=== PATIENT | male | born 1995 | race Caucasian/White ===

== ENCOUNTER 2019-02-25 01:46 | Emergency (ER) | payer OTHER ==
[~2019-02-25] VITALS: Ht 170.2 cm; Wt 72.6 kg
[2019-02-25 01:55] VITALS: BP 139/82
--- NOTE | 2019-02-25 02:27 | NUR ---
Patient discharged to home in stable condition. Written and verbal after care instructions given. Patient verbalizes understanding of instruction.
== END 2019-02-25 02:28 | disposition home or self-care (01) ==
LOC: ER 01:46
DX: L30.9 Dermatitis, unspecified (principal); F10.10 Alcohol abuse, uncomplicated; Y90.9 Presence of alcohol in blood, level not specified; Z90.89 Acquired absence of other organs; Z60.2 Problems related to living alone

== ENCOUNTER 2019-02-27 13:48 | Emergency (ER) | payer OTHER ==
[~2019-02-27] VITALS: Ht 170.2 cm; Wt 72.6 kg
[2019-02-27 13:55] VITALS: BP 143/75
--- NOTE | 2019-02-27 14:50 | NUR ---
Patient discharged to home in stable condition. Written and verbal after care instructions given. Patient verbalizes understanding of instruction.
== END 2019-02-27 15:09 | disposition home or self-care (01) ==
LOC: ER 13:50
DX: B02.9 Zoster without complications (principal); F10.10 Alcohol abuse, uncomplicated; Y90.9 Presence of alcohol in blood, level not specified; Z98.890 Other specified postprocedural states; Z60.2 Problems related to living alone; Z90.89 Acquired absence of other organs

== ENCOUNTER 2021-10-07 08:52 | Emergency (ER) | payer OTHER ==
[~2021-10-07] VITALS: Ht 170.2 cm; Wt 72.6 kg
--- NOTE | 2021-10-07 08:52 | NUR ---
BIBS AFTER NOTICING RECTAL BLEEDING X2 DAYS, DENIES PAIN. PT CONCERNED ABOUT STD. VITALS ARE WITHIN NORMAL LIMITS. BREATHING IS EVEN AND UNLABORED.
--- NOTE | 2021-10-07 09:09 | NUR ---
URINE COLLECTED AND SENT
--- NOTE | 2021-10-07 09:11 | NUR ---
LAB AT BEDSIDE
--- NOTE | 2021-10-07 09:15 | NUR ---
Patient discharged to home in stable condition. Written and verbal after care instructions given. Patient verbalizes understanding of instruction.
[2021-10-07 09:16] VITALS: BP 136/84
== END 2021-10-07 09:16 | disposition home or self-care (01) ==
LOC: ER 08:57
DX: A64 Unspecified sexually transmitted disease (principal)
CPT/HCPCS: 36415; 86592

== ENCOUNTER 2021-10-14 16:49 | Emergency (ER) | payer OTHER ==
[~2021-10-14] VITALS: Ht 172.7 cm; Wt 72.6 kg
[2021-10-14 16:49] VITALS: BP 146/74
[2021-10-14] MEDS ORDERED: PENICILLIN G BENZATHINE 2.4 MMU/4 ML ML IM ONE ×2 (17:59→18:00)
--- NOTE | 2021-10-14 18:06 | NUR ---
Patient discharged to home in stable condition. Written and verbal after care instructions given. Patient verbalizes understanding of instruction.
== END 2021-10-14 18:07 | disposition home or self-care (01) ==
LOC: ER 16:56
DX: A53.9 Syphilis, unspecified (principal); Z90.89 Acquired absence of other organs; Z60.2 Problems related to living alone
CPT/HCPCS: 96372; 99283; J0558

== ENCOUNTER 2021-12-17 17:13 | Emergency (ER) | payer OTHER ==
[~2021-12-17] VITALS: Ht 170.2 cm; Wt 72.6 kg
[2021-12-17 17:40] VITALS: BP 137/74
--- NOTE | 2021-12-17 18:17 | NUR ---
Patient discharged to home in stable condition. Written and verbal after care instructions given. Patient verbalizes understanding of instruction.
== END 2021-12-17 18:19 | disposition home or self-care (01) ==
LOC: ER 17:17
DX: R68.84 Jaw pain (principal); Z90.89 Acquired absence of other organs; Z60.2 Problems related to living alone

== ENCOUNTER 2021-12-27 18:59 | Inpatient (IN) | payer OTHER ==
[~2021-12-27] VITALS: Ht 170.2 cm; Wt 76.7 kg
[2021-12-27] MEDS ORDERED: ACETAMINOPHEN ES 500 MG TABLET ONE (20:21)
--- NOTE | 2021-12-27 20:28 | NUR ---
BLOOD COLLECTED AND SENT TO LAB
[2021-12-27] MEDS ORDERED: IV NS 0.9% 500 ML IV ONE (20:30)
[2021-12-27] MEDS ORDERED: ACETAMINOPHEN ES 500 MG TABLET PO ONE (20:30)
[2021-12-27] MEDS ORDERED: IOHEXOL-300 100 ML VIAL IV ONE (20:43)
[2021-12-27] MEDS ORDERED: IV NS 0.9% 250 ML IV ONE (20:43)
[2021-12-27] MEDS ORDERED: CT SWABBABLE VALVE TRANS SET 1 EA INFUS.SET MC ONE (20:43)
--- NOTE | 2021-12-27 21:04 | NUR ---
Lynda ramirez in ED - 12/27/21 at 2111 by [facility] AT BEDSIDE
[2021-12-27 21:09] LABS: BASOPHILS % (AUTO) 0.2 % (0.0-2.0); HEMATOCRIT 37 % (39-51); HEMOGLOBIN 12.1 g/dL (13.5-17.5); LYMPHOCYTES # (AUTO) 2.2 K/uL (0.8-4.8); LYMPHOCYTES % (AUTO) 22.2 % (20.0-44.0); MEAN CORPUSCULAR HGB CONC 33 g/dl (31.0-36.0); MEAN CORPUSCULAR VOLUME 88 fL (80-96); MONOCYTES # (AUTO) 0.7 K/uL (0.1-1.30); NEUTROPHILS % (AUTO) 69.6 % (43.0-81.0); PLATELET COUNT (AUTO) 314 K/uL (150-450); RED BLOOD CELL COUNT(AUTO) 4.17 MIL/uL (4.5-6.0)
[2021-12-27 21:11] LABS: CALCIUM, SERUM 8.9 mg/dL (8.5-10.1); POTASSIUM 3.7 mmol/L (3.5-5.1)
[2021-12-28] VITALS: BP_SYST 112; BP_SYST 145; BP_DIAS 64; BP_DIAS 69
[2021-12-28] MEDS ORDERED: Z GUARD REMEDY 4 OZ OINT TP PRN
[2021-12-28] MEDS ORDERED: ACETAMINOPHEN 325 MG TABLET PO PRN
[2021-12-28] MEDS ORDERED: HYDROCODONE/APAP 5/325MG TABLET PO PRN
[2021-12-28] MEDS ORDERED: MAGNESIUM HYDROXIDE 30 ML UDC PO PRN
[2021-12-28] MEDS ORDERED: ONDANSETRON HCL/PF 4 MG/2 ML VIAL IVP PRN
--- NOTE | 2021-12-28 00:14 | NUR ---
328-1 PER RN LOAN SERVICING REPRESENTATIVE
--- NOTE | 2021-12-28 00:57 | NUR ---
REPORT GIVEN TO DIAMOND JOYCE
--- NOTE | 2021-12-28 01:15 | NUR ---
PT TRANSFERRED TO [facility] 328-1 VIA GURNEY IN STABLE CONDITION.
--- NOTE | 2021-12-28 01:30 | NUR ---
MS/TELE/RN RECEIVED PATIENT FROM [facility]IA [facility] ADMITTED FOR R/O NEUROSYPHILIS. PATIENT IS AWAKE, ALERT, ORIENTED, COMFORTABLE, NO C/O BEDOLLA, VISION IS BETTER, HEARING IS BETTER, NO DISTRESS NOTE, ADMISSION DONE PER PROTOCOL, REFUSED SKIN ASSESSMENT AT THIS TIME, PLAN OF CARE DISCUSSED, VERBALISED UNDERSTANDING AND AGREEMENT, FALL PRECAUTIONS PER PROTOCOL WAS INSTITUTED, TAUGHT THE USE OF CALL LIGHT AND PLACED IT AT BEDSIDE WITHIN REACH. MD ORDERS CARRIED OUT. WILL MONITOR.
[2021-12-28] MEDS ORDERED: CEFTRIAXONE 1 G VIAL ONE ×2 (01:31→01:32)
[2021-12-28] MEDS: CEFTRIAXONE 2 G in IV D5W 100 ML IV SCH (01:42)
[2021-12-28 02:00] VITALS: BP 145/69
[2021-12-28 06:43] LABS: BASOPHILS % (AUTO) 0.6 % (0.0-2.0); EOSINOPHILS % (AUTO) 3.8 % (0.0-6.0); HEMATOCRIT 34 % (39-51); HEMOGLOBIN 11.1 g/dL (13.5-17.5); LYMPHOCYTES # (AUTO) 2.7 K/uL (0.8-4.8); LYMPHOCYTES % (AUTO) 34.1 % (20.0-44.0); MEAN CORPUSCULAR HGB CONC 33 g/dl (31.0-36.0); MEAN CORPUSCULAR VOLUME 89 fL (80-96); MONOCYTES # (AUTO) 0.7 K/uL (0.1-1.30); MONOCYTES % (AUTO) 8.2 % (2.0-12.0); NEUTROPHILS # (AUTO) 4.3 K/uL (1.8-8.9); NEUTROPHILS % (AUTO) 53.3 % (43.0-81.0); PLATELET COUNT (AUTO) 276 K/uL (150-450); RED BLOOD CELL COUNT(AUTO) 3.79 MIL/uL (4.5-6.0)
--- NOTE | 2021-12-28 06:49 | NUR ---
MS/TELE/RN PATIENT IS AWAKE AT THIS TIME, COMFORTABLE, NO DISTRESS NOTED CALL LIGHT IN REACH, ALL NEEDS ATTENDED AT THIS TIME WILL CONTINUE TO MONITOR.
[2021-12-28 07:05] LABS: CALCIUM, SERUM 8.2 mg/dL (8.5-10.1); CREATININE 0.9 mg/dL (0.6-1.3); MAGNESIUM 2.6 mg/dL (1.8-2.4); PHOSPHORUS 5.2 mg/dL (2.5-4.9); POTASSIUM 3.8 mmol/L (3.5-5.1)
[2021-12-28] MEDS: PANTOPRAZOLE 40 MG TABLET.DR PO SCH (07:45)
[2021-12-28] MEDS ORDERED: EMTR1TAB18 PO (07:52)
[2021-12-28 08:21] VITALS: BP 121/57
--- NOTE | 2021-12-28 12:10 | NUR ---
RN NOTES CALLED RADIOLOGY FOR LUMBAR PUNCTURE SCHEDULE; WILL CALL BACK TO CONFIRM.
--- NOTE | 2021-12-28 13:05 | NUR ---
RN NOTES DR. KATZ AT BEDSIDE TO SEE THE PATIENT. FOR ID CONSULT PER DR. KATZ.
--- NOTE | 2021-12-28 14:10 | NUR ---
RN NOTES SPOKE W/ RADIOLOGY AND WAS INFORMED THAT MD RN ER STATED THAT LP WILL BE DONE IF PROCEDURE IS EMERGENT AND WARRANTED; WILL STAND BY FOR NOW AND AWAIT ID RECOMMENDATIONS ONCE PATIENT IS SEEN BY ID SPECIALIST. DR. KATZ AND CHARGE NURSE AWARE.
--- NOTE | 2021-12-28 16:36 | NUR ---
RN NOTES SPOKE W/ ENEIDA BRUNNER, SURVEY CAD TECHNICIAN ID, FOR ID CONSULT. PER ENEIDA, SHE WILL BE SEEING PATIENT TONIGHT AROUND [phone] AND TO CONTINUE W/ LUMBAR PUNCTURE PROCEDURE IF NOT TONIGHT THEN TOMORROW PER DR. DAVILA.
[2021-12-28 16:47] VITALS: BP 125/58
--- NOTE | 2021-12-28 16:53 | NUR ---
RN NOTES SPOKE W/ RADIOLOGY; PER RADIOLOGY, LUMBAR PUNCTURE WILL NOT BE DONE TONIGHT NOR TOMORROW EVEN IF ORDER IS STAT. THE EARLIEST THAT LP WILL BE DONE IS ON THURSDAY.
--- NOTE | 2021-12-28 18:48 | NUR ---
RN NOTES FAMILY AT BEDSIDE TO VISIT PATIENT.
--- NOTE | 2021-12-28 19:35 | NUR ---
MS RN OPENING NOTES RECEIVED PATIENT LAYING AWAKE IN BED. A/O X4. PATIENT WITH REGULAR AND UNLABORED BREATHING ON ROOM AIR, TOLERATED WELL. NO SIGNS AND SYMPTOMS OF DISTRESS NOTED AT THIS TIME. NO COMPLAINS OF PAIN OR DISCOMFORT AT THIS TIME. IV ACCESS RAC G #18 SL. IV ACCESS PATENT AND INTACT. SAFETY PRECAUTIONS ENFORCED WITH BED LOCKED AND AT LOWEST POSITION. SIDE RAILS UP X2. CALL LIGHT WITHIN REACH AT ALL TIMES. WILL CONTINUE TO MONITOR PATIENT.
[2021-12-28 20:00] VITALS: BP 129/75
[2021-12-29] MEDS: CEFTRIAXONE 2 G in IV D5W 100 ML IV SCH (00:04)
--- NOTE | 2021-12-29 06:41 | NUR ---
MS RN CLOSING NOTES PATIENT STILL LAYING AWAKE IN BED. A/O X4. PATIENT WITH REGULAR AND UNLABORED BREATHING ON ROOM AIR, TOLERATED WELL. NO SIGNS AND SYMPTOMS OF DISTRESS NOTED AT THIS TIME. NO COMPLAINS OF PAIN OR DISCOMFORT AT THIS TIME. IV ACCESS RAC G #18 SL. IV ACCESS PATENT AND INTACT. SAFETY PRECAUTIONS ENFORCED WITH BED LOCKED AND AT LOWEST POSITION. SIDE RAILS UP X2. CALL LIGHT WITHIN REACH AT ALL TIMES. WILL ENDORSE CONTINUITY OF CARE TO DAY SHIFT NURSE.
--- NOTE | 2021-12-29 07:26 | NUR ---
MS RN OPENING NOTES RECEIVED PATIENT AWAKE IN BED IN NO ACUTE SIGNS OF DISTRESS. A/O X4, DENIES PAIN OR ANY DISCOMFORTS AT THIS TIME. ON ROOM AIR, TOLERATING WELL, BREATHING EVEN AND UNLABORED. IV ACCESS ON RAC G#18 INTACT AND PATENT. SAFETY PRECAUTIONS IN PLACED: BED LOCKED AND AT LOWEST POSITION, SIDE-RAILS UP X2. CALL LIGHT WITHIN REACH. WILL CONTINUE TO MONITOR PATIENT.
[2021-12-29] MEDS: PANTOPRAZOLE 40 MG TABLET.DR PO SCH (07:30)
[2021-12-29 08:23] VITALS: BP 133/77
--- NOTE | 2021-12-29 13:03 | NUR ---
RN NOTES PATIENT SEEN BY DR. KATZ TODAY; OKAY FOR DISCHARGE AND INSTRUCTED TO RETURN TO THE ER IF SYMPTOMS PERSIST. PER DR. KATZ, WILL INFORM ID AND ASK FOR OUTPATIENT ATB RECOMMENDATIONS.
--- NOTE | 2021-12-29 14:41 | NUR ---
RN NOTES FACUNDO KATZ WITH ORDER TO INSERT MIDLINE FOR PT. COMPRESSOR OPERATOR ADJUSTER NOTIFIED.
--- NOTE | 2021-12-29 14:42 | NUR ---
RN NOTES URINE SPECIMEN COLLECTED AND CALLED LAB TO PICK-UP SPECIMEN.
[2021-12-29 16:00] VITALS: BP 139/76
--- NOTE | 2021-12-29 18:40 | NUR ---
MS RN CLOSING NOTES PATIENT AWAKE AND RESTING IN BED AT THIS TIME. A/O X4, ABLE TO MAKE NEEDS KNOWN,. AMBULATORY WITH STEADY GAIT. ON ROOM AIR, TOLERATING WELL, BREATHING EVEN AND UNLABORED. IV ACCESS ON RAC G#18 INTACT, PATENT AND FLUSHES WLL. ALL NEEDS AND CARE ATTENDED WELL. SAFETY PRECAUTIONS KEPT IN PLACED: BED LOCKED AND AT LOWEST POSITION, SIDE-RAILS UP X2. CALL LIGHT AND TRAY TABLE WITHIN EASY REACH OF PT. WILL ENDORSE RHONDA TO TICKET SCHEDULER NURSE.
--- NOTE | 2021-12-29 19:45 | NUR ---
RN OPENING NOTES RECEIVED PT IN BED, AWAKE, VISITOR AT BEDSIDE. AOx4, ABLE TO MAKE NEEDS KNOWN. ON RA AND TOLERATING WELL. NO SOB NOTED. NO S/SX OF RESPIRATORY DISTRESS NOTED. IV ACCESS IN RAC #18G. IV IS INTACT, PATENT, AND FLUSHING WELL. SAFETY PRECAUTIONS IN PLACE: BED IN LOWEST, LOCKED POSITION, SIDERAILS UPx2, AND BRAKES ON. TABLE AND CALL LIGHT WITHIN REACH. WILL CONTINUE TO MONITOR.
[2021-12-29 20:15] VITALS: BP 127/78
[2021-12-30] MEDS: CEFTRIAXONE 2 G in IV D5W 100 ML IV SCH (01:10)
--- NOTE | 2021-12-30 06:49 | NUR ---
PT STATED OUTSIDE LAB VALUES FROM PRIMARY PHYSICIAN RETURNED WITH POSITIVE VALUES FOR HEPATITIS A AND SYPHILIS.
--- NOTE | 2021-12-30 06:57 | NUR ---
RN CLOSING NOTES PT IN BED, ASLEEP, AWAKENS TO VERBAL STIMULI. AOx4, ABLE TO MAKE NEEDS KNOWN. ON RA AND TOLERATING WELL. NO SOB NOTED. NO S/SX OF RESPIRATORY DISTRESS NOTED. IV ACCESS IN RAC #18G. IV IS INTACT, PATENT, AND FLUSHING WELL. ALL NEEDS MET. PT KEPT CLEAN AND DRY. SAFETY PRECAUTIONS IN PLACE: BED IN LOWEST, LOCKED POSITION, SIDERAILS UPx2, AND BRAKES ON. TABLE AND CALL LIGHT WITHIN REACH. WILL ENDORSE TO ONCOMING SHIFT FOR RHONDA.
--- NOTE | 2021-12-30 07:20 | NUR ---
MS RN OPENING NOTES RECEIVED PATIENT IN BED IN AWAKE, A/O X4, ABLE TO MAKE NEEDS KNOWN, DENIES PAIN OR ANY DISCOMFORTS AT THIS TIME. ON ROOM AIR, TOLERATING WELL, BREATHING EVEN AND UNLABORED. IV ACCESS ON RAC G#18 AND MIDLINE ON FLORESITA G#18 BOTH INTACT AND PATENT. SAFETY MEASURES IN PLACED: BED LOCKED AND AT LOWEST POSITION, SIDE-RAILS UP X2. CALL LIGHT WITHIN REACH. WILL CONTINUE TO MONITOR PATIENT.
[2021-12-30] MEDS: PANTOPRAZOLE 40 MG TABLET.DR PO SCH (07:30)
[2021-12-30 08:00] VITALS: BP 118/59
[2021-12-30] MEDS ORDERED: CEFT1FRO2 IV (11:48)
--- NOTE | 2021-12-30 14:15 | NUR ---
RN NOTES PT S/P XR LUMBAR PUNCTURE. 3 BOTTLES OF CSF SPECIMENS SENT TO LAB.
[2021-12-30 15:33] LABS: CSF GLUCOSE 56 mg/dL (40-70); CSF PROTEIN 42.8 mg/dL (15-45)
[2021-12-30 16:00] VITALS: BP 136/72
[2021-12-30] MEDS ORDERED: CEFT2FRO2 IV (17:36)
--- NOTE | 2021-12-30 18:37 | NUR ---
MS RN CLOSING NOTES PATIENT IN BED WATCHING TV AT THIS TIME. A/O X4, ABLE TO MAKE NEEDS KNOWN. AMBULATORY WITH STEADY GAIT. PT FOR DISCHARGE HOME TONIGHT PER MD ORDER. ON ROOM AIR, TOLERATING WELL, BREATHING EVEN AND UNLABORED. MIDLINE ON FLORESITA G#18 INTACT, PATENT AND FLUSHES WELL. ALL NEEDS AND CARE ATTENDED WELL. SAFETY PRECAUTIONS KEPT IN PLACED: BED LOCKED AND AT LOWEST POSITION, SIDE-RAILS UP X2. CALL LIGHT AND TRAY TABLE WITHIN EASY REACH OF PT. WILL ENDORSE RHONDA AND POC TO PLASTIC PRESS MOLDER NURSE.
--- NOTE | 2021-12-30 19:44 | NUR ---
RN OPENING NOTES RECEIVED PT IN BED, AWAKE. AOx4, ABLE TO MAKE NEEDS KNOWN. ON RA AND TOLERATING WELL. NO SOB NOTED. NO S/SX OF RESPIRATORY DISTRESS NOTED. IV ACCESS IN RAC #18G AND FLORESITA MIDLINE #18. IV IS INTACT, PATENT, AND FLUSHING WELL. SAFETY PRECAUTIONS IN PLACE: BED IN LOWEST, LOCKED POSITION, SIDERAILS UPx2, AND BRAKES ON. TABLE AND CALL LIGHT WITHIN REACH. WILL CONTINUE TO MONITOR.
[2021-12-30 20:00] VITALS: BP 130/78
[2021-12-30] MEDS ORDERED: CEFTRIAXONE 2 G in IV D5W 100 ML IV SCH (22:00)
--- NOTE | 2021-12-30 23:02 | NUR ---
DISCHARGE NOTES PT LEFT IN PRIVATE VEHICLE @1654. AMBULATED DOWNSTAIRS ON OWN WITH STEADY GAIT. ALL BELONGINGS ACCOUNTED FOR. DISCHARGE AND BELONGINGS PAPERWORK SIGNED. DISCHARGE EDUCATION GIVEN. MIDLINE INTACT FOR HOME HEALTH. IV IS INTACT, PATENT, AND FLUSHING WELL. NO SIGNS OF REDNESS. VITAL SIGNS STABLE.
[2022-01-02 11:07] LABS: *HIV-1 RNA BY PCR <20 copies/mL (.)
[2022-01-08] MEDS ORDERED: ZOLP5TAB2 PO (09:23)
[2022-01-08] MEDS ORDERED: HYDR-3972 PO (09:23)
== END 2021-12-30 22:55 | disposition home health service (06) | DRG 42 ==
LOC: ER 19:01 → MED 12-28 00:33
PROVIDERS: ADMIT Nurse Practitioner Family; ATTEND Nurse Practitioner Acute Care
PROC: 009U3ZX Drainage of Spinal Canal, Percutaneous Approach, Diagnostic (ICD-10-PCS; principal; 2021-12-30)
PROC: B01B1ZZ Fluoroscopy of Spinal Cord using Low Osmolar Contrast (ICD-10-PCS; principal; 2021-12-30)
DX: A52.3 Neurosyphilis, unspecified (principal); D64.9 Anemia, unspecified; R73.9 Hyperglycemia, unspecified; Z20.822 Contact with and (suspected) exposure to COVID-19; Z86.19 Personal history of other infectious and parasitic diseases
CPT/HCPCS: 36410; 36415; 62270; 70470-TC; 80048-TC; 83540-TC; 83735-TC; 84100-TC; 85025-TC; 85730-TC; 86140-TC; 86592; 86706; 86780; 86803; 87040-TC; 87081-TC; 87086-TC; 87536; 87806; 88108-TC; 88305-TC; 89051-TC; C9803; G0378; J0696; J7040; J7050; J7060; Q9967

== ENCOUNTER 2022-01-05 07:20 | Emergency (ER) | payer OTHER ==
[~2022-01-05] VITALS: Ht 170.2 cm; Wt 72.6 kg
[~2022-01-05 07:20] MED LIST: CEFT2FRO2 IV; EMTR1TAB18 PO
--- NOTE | 2022-01-05 07:39 | NUR ---
BIBS C/O MIDLINE PAIN. PATIENT ALERT AND ORIENTED X3. AMBULATORY WITH NON LABORED BREATHING. IN BED 19 AWAITING MD GARCIA
--- NOTE | 2022-01-05 09:30 | NUR ---
RAPID STREP SWAB DONE AND SENT TO LAB
[2022-01-05 09:39] LABS: BASOPHILS % (AUTO) 0.4 % (0.0-2.0); EOSINOPHILS % (AUTO) 1.8 % (0.0-6.0); HEMATOCRIT 35 % (39-51); HEMOGLOBIN 11.4 g/dL (13.5-17.5); LYMPHOCYTES # (AUTO) 2.6 K/uL (0.8-4.8); LYMPHOCYTES % (AUTO) 29.4 % (20.0-44.0); MEAN CORPUSCULAR HGB CONC 33 g/dl (31.0-36.0); MEAN CORPUSCULAR VOLUME 87 fL (80-96); MONOCYTES # (AUTO) 0.9 K/uL (0.1-1.30); MONOCYTES % (AUTO) 10.1 % (2.0-12.0); NEUTROPHILS # (AUTO) 5.1 K/uL (1.8-8.9); NEUTROPHILS % (AUTO) 58.3 % (43.0-81.0); PLATELET COUNT (AUTO) 303 K/uL (150-450); RED BLOOD CELL COUNT(AUTO) 3.97 MIL/uL (4.5-6.0); WHITE BLOOD COUNT (AUTO) 8.7 K/uL (4.3-11.0)
[2022-01-05 10:54] VITALS: BP 132/72
--- NOTE | 2022-01-05 10:54 | NUR ---
Patient discharged to home in stable condition. Written and verbal after care instructions given. Patient verbalizes understanding of instruction.
[2022-01-08] MEDS ORDERED: ZOLP5TAB2 PO (09:23)
[2022-01-08] MEDS ORDERED: HYDR-3972 PO (09:23)
== END 2022-01-05 10:55 | disposition home or self-care (01) ==
LOC: ER 07:27
DX: T82.848A Pain due to vascular prosthetic devices, implants and grafts, initial encounter (principal); Z90.89 Acquired absence of other organs; Z60.2 Problems related to living alone
CPT/HCPCS: 36415; 85025-TC; 86403-TC; 87070-TC; 93971-TC

== ENCOUNTER 2022-01-07 00:12 | Inpatient (IN) | payer OTHER ==
[~2022-01-07] VITALS: Ht 170.2 cm; Wt 72.6 kg
--- NOTE | 2022-01-07 01:05 | NUR ---
BIBS C/O NAUSEA AND RINGING IN EARS "ONLY SUBSIDES WHEN LYING DOWN" TYLENOL TAKEN CERTIFIED MEDICAL RECORDS CODER. PATIENT ALERT AND ORIENTED X3. AMBULATORY WITH NON LABORED BREATHING. IN BED 01 AWAITING MD GARCIA.
--- NOTE | 2022-01-07 01:06 | NUR ---
FLORESITA #18G PICCLINE S/L; PATENT AND INTACT.
[2022-01-07] MEDS ORDERED: ONDANSETRON 4 MG TAB.RAPDIS ONE (01:28)
[2022-01-07] MEDS ORDERED: MECLIZINE HCL 25 MG TABLET ONE (01:28)
[2022-01-07] MEDS ORDERED: ONDANSETRON 4 MG TAB.RAPDIS SL ONE (01:30)
[2022-01-07] MEDS ORDERED: MECLIZINE HCL 25 MG TABLET PO ONE (01:30)
[2022-01-07] MEDS ORDERED: ONDA4TAB5 PO (01:31)
[2022-01-07] MEDS ORDERED: HYDR-4209 PO (01:31)
[2022-01-07] MEDS ORDERED: HYDROCODONE/APAP 10/325MG TABLET ONE (03:51)
[2022-01-07] MEDS ORDERED: ONDANSETRON HCL/PF 4 MG/2 ML VIAL ONE (03:51)
--- NOTE | 2022-01-07 03:54 | NUR ---
CLINICAL PHARMACOLOGIST AT PT'S BEDSIDE
[2022-01-07] MEDS ORDERED: ONDANSETRON HCL/PF 4 MG/2 ML VIAL IVP ONE (04:00)
[2022-01-07] MEDS ORDERED: HYDROCODONE/APAP 10/325MG TABLET PO ONE (04:00)
--- NOTE | 2022-01-07 04:00 | NUR ---
COVID ANTIGEN SWAB COLLECTED AND SENT TO LAB
[2022-01-07 04:12] LABS: BASOPHILS % (AUTO) 0.5 % (0.0-2.0); EOSINOPHILS % (AUTO) 2.3 % (0.0-6.0); HEMATOCRIT 36 % (39-51); HEMOGLOBIN 11.9 g/dL (13.5-17.5); LYMPHOCYTES # (AUTO) 2.7 K/uL (0.8-4.8); LYMPHOCYTES % (AUTO) 32.3 % (20.0-44.0); MEAN CORPUSCULAR HGB CONC 33 g/dl (31.0-36.0); MEAN CORPUSCULAR VOLUME 87 fL (80-96); MONOCYTES # (AUTO) 0.7 K/uL (0.1-1.30); MONOCYTES % (AUTO) 8.3 % (2.0-12.0); NEUTROPHILS # (AUTO) 4.8 K/uL (1.8-8.9); NEUTROPHILS % (AUTO) 56.6 % (43.0-81.0); PLATELET COUNT (AUTO) 309 K/uL (150-450); RED BLOOD CELL COUNT(AUTO) 4.16 MIL/uL (4.5-6.0); WHITE BLOOD COUNT (AUTO) 8.4 K/uL (4.3-11.0)
[2022-01-07 04:30] LABS: CALCIUM, SERUM 8.8 mg/dL (8.5-10.1); CREATININE 0.9 mg/dL (0.6-1.3)
[2022-01-07 04:37] LABS: ALBUMIN 3.5 g/dL (3.4-5.0); BILIRUBIN,TOTAL 0.2 mg/dL (0.2-1.0); TOTAL PROTEIN, SERUM 9.2 g/dL (6.4-8.2)
--- NOTE | 2022-01-07 06:07 | NUR ---
Maxime ROSSI. ON THE PHONE WITH DR TANG
[2022-01-07] MEDS ORDERED: MORPHINE SULFATE INJ 2 MG/ML DISP.SYRIN IV PRN (06:30)
[2022-01-07] MEDS ORDERED: HYDROCODONE/APAP 5/325MG TABLET PO PRN (06:30)
[2022-01-07] MEDS ORDERED: ONDANSETRON HCL/PF 4 MG/2 ML VIAL IVP PRN (06:30)
[2022-01-07] MEDS ORDERED: ACETAMINOPHEN 325 MG TABLET PO PRN (06:30)
[2022-01-07] MEDS: ENOXAPARIN SODIUM 40 MG/0.4 ML DISP.SYRIN SQ SCH (08:00)
[2022-01-07] MEDS ORDERED: DEXTROSE ISO IV SCH (09:00)
[2022-01-07] MEDS ORDERED: [UNRECOGNIZED DRUG - OTHER] IV SCH (09:00)
[2022-01-07] MEDS ORDERED: CEFTRIAXONE NA IV SCH (09:00)
[2022-01-07] MEDS ORDERED: ENOXAPARIN SODIUM 40 MG/0.4 ML DISP.SYRIN SQ ONE (09:18)
--- NOTE | 2022-01-07 09:32 | NUR ---
ROOM 314-2
[2022-01-07] MEDS ORDERED: CEFTRIAXONE 2 G in IV D5W 100 ML IV ONE (10:00)
--- NOTE | 2022-01-07 10:11 | NUR ---
THE PATIENT IS TRANSFERED TO ROOM 314-2 IN STABLE CONDITION AND PER POLICY.
--- NOTE | 2022-01-07 10:38 | NUR ---
RN NOTES RESTING IN BED, JUST FINISHED EATING BREAKFAST. NO COMPLAINT OF NAUSEA/VOMITING AT THIS TIME. IV ATB CURRENTLY INFUSING. MIDLINE ON FLORESITA INTACT AND PATENT. WILL CONTINUE TO MONITOR.
--- NOTE | 2022-01-07 17:35 | NUR ---
RN NOTES PATIENT SEEN BY DR. CARDOZA FOR NEUROLOGY CONSULT.
--- NOTE | 2022-01-07 19:26 | NUR ---
RN NOTES BEDSIDE ENDORSEMENT GIVEN TO SALMON TROLL FISHER RN FOR RHONDA.
--- NOTE | 2022-01-07 20:00 | NUR ---
MS RN NOTES PT REFUSING VITAL SIGNS CHECK X3 RISK AND BENEFITS EXPLAINED X3 WILL TRY AGAIN LATER.
--- NOTE | 2022-01-07 20:01 | NUR ---
RN OPENING NOTES PT IN BED A/OX 4 NO PAIN OR RESPIRATORY DISTRESS NOTED AT THIS TIME. ON ROOM AIR TOLERATING WELL. PT NOTED WITH FLORESITA MIDLINE. CALL LIGHT WITHIN REACH. TABLE WITHIN REACH WILL CONTINUE TO MONITOR.
--- NOTE | 2022-01-07 21:19 | NUR ---
RN NOTES SPOKE TO DR HENNING RECEIVED NEW ORDER FOR NORTRIPTYLINE 20 MG QHS ORDER NOTED AND ARRIVED OUT. WILL CONTINUE TO MONITOR.
[2022-01-07] MEDS ORDERED: NORTRIPTYLINE HCL 10 MG CAPSULE PO SCH (22:00)
[2022-01-08] MEDS: ENOXAPARIN SODIUM 40 MG/0.4 ML DISP.SYRIN SQ SCH (06:18)
--- NOTE | 2022-01-08 06:35 | NUR ---
RN CLOSING NOTES PT IN BED A/OX 4 NO PAIN OR RESPIRATORY DISTRESS NOTED AT THIS TIME. ON ROOM AIR TOLERATING WELL. PT NOTED WITH FLORESITA MIDLINE. CALL LIGHT WITHIN REACH. TABLE WITHIN REACH ALL NEEDS ANTICIPATED AND MET. WILL ENDORSE CARE TO DAYS HIFT NURSE.
[2022-01-08 07:28] LABS: BASOPHILS % (AUTO) 0.5 % (0.0-2.0); EOSINOPHILS % (AUTO) 3.2 % (0.0-6.0); HEMATOCRIT 35 % (39-51); HEMOGLOBIN 11.6 g/dL (13.5-17.5); LYMPHOCYTES # (AUTO) 2.7 K/uL (0.8-4.8); LYMPHOCYTES % (AUTO) 32.3 % (20.0-44.0); MEAN CORPUSCULAR HGB CONC 33 g/dl (31.0-36.0); MEAN CORPUSCULAR VOLUME 87 fL (80-96); MONOCYTES # (AUTO) 0.6 K/uL (0.1-1.30); MONOCYTES % (AUTO) 7.4 % (2.0-12.0); NEUTROPHILS # (AUTO) 4.8 K/uL (1.8-8.9); NEUTROPHILS % (AUTO) 56.6 % (43.0-81.0); PLATELET COUNT (AUTO) 289 K/uL (150-450); RED BLOOD CELL COUNT(AUTO) 4.06 MIL/uL (4.5-6.0); WHITE BLOOD COUNT (AUTO) 8.5 K/uL (4.3-11.0)
[2022-01-08 07:58] LABS: ALBUMIN 3.2 g/dL (3.4-5.0); BILIRUBIN,TOTAL 0.1 mg/dL (0.2-1.0); CALCIUM, SERUM 8.1 mg/dL (8.5-10.1); MAGNESIUM 2.2 mg/dL (1.8-2.4); PHOSPHORUS 3.4 mg/dL (2.5-4.9); POTASSIUM 3.5 mmol/L (3.5-5.1)
[2022-01-08 08:00] VITALS: BP 111/66
--- NOTE | 2022-01-08 08:00 | NUR ---
received pt. alert and oriented x4.no complaints offered.denies headache.
[2022-01-08 08:17] LABS: TOTAL PROTEIN, SERUM 8.4 g/dL (6.4-8.2)
[2022-01-08] MEDS ORDERED: ZOLP5TAB2 PO (09:23)
[2022-01-08] MEDS ORDERED: HYDR-3972 PO (09:23)
--- NOTE | 2022-01-08 09:30 | NUR ---
breezy mud cleaner operator here dc order given.rxs sent to pt's pharm.
--- NOTE | 2022-01-08 11:30 | NUR ---
hep lock out.belonging sheet signed along with other papers.verbalized understanding of all instructions.taken via w/c to lobby accompanied by transfer car operator drier.
== END 2022-01-08 11:15 | disposition home or self-care (01) | DRG 54 ==
LOC: ER 00:14 → TRANSITION 08:24 → TELE 09:28 → MED 23:27
PROVIDERS: ADMIT Nurse Practitioner Acute Care; ATTEND Nurse Practitioner Acute Care
DX: G97.1 Other reaction to spinal and lumbar puncture (principal); A52.3 Neurosyphilis, unspecified; D63.8 Anemia in other chronic diseases classified elsewhere; Z86.19 Personal history of other infectious and parasitic diseases; Y84.4 Aspiration of fluid as the cause of abnormal reaction of the patient, or of later complication, without mention of misadventure at the time of the procedure; Y92.009 Unspecified place in unspecified non-institutional (private) residence as the place of occurrence of the external cause; Z20.822 Contact with and (suspected) exposure to COVID-19; Z87.19 Personal history of other diseases of the digestive system
CPT/HCPCS: 36415; 80048-TC; 80053-TC; 80076-TC; 83735-TC; 84100-TC; 85025-TC; 85652-TC; 85730-TC; C9803; G0378; J0696; J1650; J2405; J7050; J7060; J8597; Q0162

== ENCOUNTER 2022-05-18 20:18 | Emergency (ER) | payer OTHER ==
[~2022-05-18] VITALS: Ht 170.2 cm; Wt 68.0 kg
[~2022-05-18 20:18] MED LIST changes: -CEFT2FRO2 IV; +HYDR-3972 PO; +HYDR-4209 PO; +ONDA4TAB5 PO; +ZOLP5TAB2 PO
--- NOTE | 2022-05-18 20:35 | NUR ---
BIBS. TO ER BED 10. AAOX4. NOT IN RESP DISTRESS. VITALS STABLE. CAME INFOR RECTAL BLEEDING THAT HAS BEEN GOING ON FOR THE PAST 6-8 WEEKS. REPORTS BLEEDING INTERMITENTLY BUT FOR THAT PAST 3 DAYS. IT HAS BEEN WORST. DENIES PAIN. AWAITING MD FOR EVAL.
[2022-05-18 21:21] LABS: BASOPHILS % (AUTO) 0.5 % (0.0-2.0); EOSINOPHILS % (AUTO) 1.8 % (0.0-6.0); HEMATOCRIT 38 % (39-51); HEMOGLOBIN 12.6 g/dL (13.5-17.5); LYMPHOCYTES # (AUTO) 2.9 K/uL (0.8-4.8); LYMPHOCYTES % (AUTO) 33.5 % (20.0-44.0); MEAN CORPUSCULAR HGB CONC 33 g/dl (31.0-36.0); MEAN CORPUSCULAR VOLUME 87 fL (80-96); MONOCYTES # (AUTO) 0.7 K/uL (0.1-1.30); MONOCYTES % (AUTO) 8.4 % (2.0-12.0); NEUTROPHILS # (AUTO) 4.8 K/uL (1.8-8.9); NEUTROPHILS % (AUTO) 55.8 % (43.0-81.0); PLATELET COUNT (AUTO) 284 K/uL (150-450); RED BLOOD CELL COUNT(AUTO) 4.36 MIL/uL (4.5-6.0); WHITE BLOOD COUNT (AUTO) 8.7 K/uL (4.3-11.0)
[2022-05-18 21:35] LABS: CALCIUM, SERUM 8.7 mg/dL (8.5-10.1); CREATININE 1.2 mg/dL (0.6-1.3)
[2022-05-18 21:49] LABS: ALBUMIN 3.4 g/dL (3.4-5.0); BILIRUBIN,TOTAL 0.1 mg/dL (0.2-1.0); TOTAL PROTEIN, SERUM 9.3 g/dL (6.4-8.2)
--- NOTE | 2022-05-18 22:44 | NUR ---
Patient discharged to home in stable condition. Written and verbal after care instructions given. Patient verbalizes understanding of instruction.
[2022-05-18 22:45] VITALS: BP 141/68
[2022-05-18 23:19] LABS: BILIRUBIN,URINE NEGATIVE (NEGATIVE); COLOR,URINE YELLOW (YELLOW); LEUKOCYTE ESTERASE ,URINE NEGATIVE (NEGATIVE); NITRITE, URINE NEGATIVE (NEGATIVE); PROTEIN,URINE NEGATIVE (NEGATIVE); UGLUCOSE NEGATIVE (NEGATIVE); UROBILINOGEN,URINE 0.2 EU/dL (0.2)
== END 2022-05-18 22:45 | disposition home or self-care (01) ==
LOC: ER 20:21
DX: K62.5 Hemorrhage of anus and rectum (principal); D50.0 Iron deficiency anemia secondary to blood loss (chronic); Z90.89 Acquired absence of other organs; Z60.2 Problems related to living alone; Z79.899 Other long term (current) drug therapy
CPT/HCPCS: 36415; 80048-TC; 80076-TC; 83690-TC; 85025-TC; 85730-TC

== ENCOUNTER 2022-12-02 15:57 | Emergency (ER) | payer OTHER ==
[~2022-12-02] VITALS: Ht 172.7 cm; Wt 72.6 kg
[2022-12-02 16:14] VITALS: BP 131/69
[2022-12-02] MEDS ORDERED: DOXY-326 PO (17:12)
[2022-12-02] MEDS ORDERED: CEFTRIAXONE 500 MG VIAL ONE (17:20)
[2022-12-02] MEDS ORDERED: DOXYCYCLINE HYCLATE (100 MG) 100 MG TABLET ONE (17:21)
[2022-12-02] MEDS ORDERED: LIDOCAINE 1% INJ 50 ML MDV IJ ONE (17:23)
[2022-12-02] MEDS ORDERED: LIDOCAINE HCL/MPF 1% 30 ML VIAL IJ ONE (17:24)
[2022-12-02] MEDS ORDERED: DOXYCYCLINE HYCLATE (100 MG) 100 MG TABLET PO ONE (17:30)
[2022-12-02] MEDS ORDERED: CEFTRIAXONE 500 MG VIAL IM ONE (17:30)
--- NOTE | 2022-12-02 17:35 | NUR ---
Patient discharged to home in stable condition. Written and verbal after care instructions given. Patient verbalizes understanding of instruction.
[2022-12-02 18:59] LABS: BILIRUBIN,URINE NEGATIVE (NEGATIVE); COLOR,URINE YELLOW (YELLOW); LEUKOCYTE ESTERASE ,URINE NEGATIVE (NEGATIVE); NITRITE, URINE NEGATIVE (NEGATIVE); PROTEIN,URINE NEGATIVE (NEGATIVE); UGLUCOSE NEGATIVE (NEGATIVE); UROBILINOGEN,URINE 0.2 EU/dL (0.2)
== END 2022-12-02 17:36 | disposition home or self-care (01) ==
LOC: ER 15:58
DX: J02.9 Acute pharyngitis, unspecified (principal); N34.2 Other urethritis; Z90.89 Acquired absence of other organs; Z60.2 Problems related to living alone; Z79.899 Other long term (current) drug therapy
CPT/HCPCS: 99283; 96372; 81003; 87491; 87591; J3490; J0696

== ENCOUNTER 2023-03-13 18:28 | Emergency (ER) | payer OTHER ==
[~2023-03-13] VITALS: Ht 170.2 cm; Wt 77.1 kg
[~2023-03-13 18:28] MED LIST changes: +DOXY-326 PO
--- NOTE | 2023-03-13 18:35 | NUR ---
RECEVED PT 28 YRS MALE CAME FROM HOME WAKING IN c/o testicale pain possible and discharge
--- NOTE | 2023-03-13 18:45 | NUR ---
SEEN BY DR. MACEDO
[2023-03-13] MEDS ORDERED: DOXYCYCLINE HYCLATE (100 MG) 100 MG TABLET PO ONE (19:00)
[2023-03-13] MEDS ORDERED: CEFTRIAXONE 500 MG VIAL IM ONE (19:00)
[2023-03-13] MEDS ORDERED: CEFTRIAXONE 500 MG VIAL ONE (19:08)
[2023-03-13] MEDS ORDERED: LIDOCAINE 1% INJ 50 ML MDV IJ ONE (19:09)
[2023-03-13] MEDS ORDERED: DOXYCYCLINE HYCLATE (100 MG) 100 MG TABLET ONE (19:09)
--- NOTE | 2023-03-13 19:15 | NUR ---
UA SENT TO LAB
--- NOTE | 2023-03-13 19:25 | NUR ---
HAND OFF NATALIE FIELDS
[2023-03-13] MEDS ORDERED: DOXY-326 PO (19:26)
[2023-03-13 19:53] VITALS: BP 152/95
--- NOTE | 2023-03-13 19:54 | NUR ---
Patient discharged to home in stable condition. Written and verbal after care instructions given. Patient verbalizes understanding of instruction.
[2023-03-13 20:09] LABS: BILIRUBIN,URINE NEGATIVE (NEGATIVE); COLOR,URINE YELLOW (YELLOW); LEUKOCYTE ESTERASE ,URINE NEGATIVE (NEGATIVE); NITRITE, URINE NEGATIVE (NEGATIVE); PROTEIN,URINE NEGATIVE (NEGATIVE); UGLUCOSE NEGATIVE (NEGATIVE)
[2023-03-13 20:29] LABS: BACTERIA,URINE Few /HPF (None Seen); RBC,URINE 0-2 /HPF (0-2); SQUAMOUS EPITHELIAL CELL,UR None Seen /HPF (None Seen); WBC,URINE 0-2 /HPF (0-3)
== END 2023-03-13 19:54 | disposition home or self-care (01) ==
LOC: ER 18:30
DX: Z11.3 Encounter for screening for infections with a predominantly sexual mode of transmission (principal); Z90.49 Acquired absence of other specified parts of digestive tract; Z60.2 Problems related to living alone; Z79.899 Other long term (current) drug therapy
CPT/HCPCS: 99283; 86592; 86593; 96372; 81001; 36415; 87491; 87591; J3490; J0696

== ENCOUNTER 2023-05-19 19:42 | Emergency (ER) | payer OTHER ==
[~2023-05-19] VITALS: Ht 170.2 cm; Wt 81.6 kg
[2023-05-19] MEDS ORDERED: CEFTRIAXONE 500 MG VIAL IM ONE (20:00)
[2023-05-19] MEDS ORDERED: AZITHROMYCIN 250 MG TABLET PO ONE (20:00)
[2023-05-19] MEDS ORDERED: CEFTRIAXONE 500 MG VIAL ONE (20:23)
[2023-05-19] MEDS ORDERED: AZITHROMYCIN 250 MG TABLET ONE (20:23)
[2023-05-19] MEDS ORDERED: LIDOCAINE /MPF 1% VIAL 5 ML VIAL ONE (20:23)
[2023-05-19 20:47] VITALS: BP 132/79; TEMP 98.5; O2SAT 98
[2023-05-22 19:06] LABS: CHLAMYDIA TRACHOMATIS NAA Negative (Negative); NEISSERIA GONORRHOEAE NAA Negative (Negative)
== END 2023-05-19 20:48 | disposition home or self-care (01) ==
LOC: ER 19:44
DX: R30.0 Dysuria (principal); Z90.89 Acquired absence of other organs; Z60.2 Problems related to living alone
CPT/HCPCS: 99283; 96372; 87491; 87591; J0696; J3490

== ENCOUNTER 2023-06-08 01:54 | Emergency (ER) | payer OTHER ==
[~2023-06-08] VITALS: Ht 172.7 cm; Wt 81.6 kg
[2023-06-08] MEDS ORDERED: KETOROLAC TROMETHAMINE INJ 60 MG/2 ML VIAL IM ONE (02:30)
[2023-06-08] MEDS ORDERED: CYCLOBENZAPRINE 10 MG TABLET PO ONE (02:30)
[2023-06-08] MEDS ORDERED: CYCLOBENZAPRINE 10 MG TABLET ONE (02:34)
[2023-06-08] MEDS ORDERED: KETOROLAC TROMETHAMINE INJ 30 MG/ML VIAL ONE (02:34)
[2023-06-08] MEDS ORDERED: NAPR-1164 PO (03:52)
[2023-06-08] MEDS ORDERED: CYCL5TAB PO (03:52)
[2023-06-08 04:08] VITALS: BP 126/73; TEMP 98.1; O2SAT 99
== END 2023-06-08 04:09 | disposition home or self-care (01) ==
LOC: ER 01:54
DX: S30.0XXA Contusion of lower back and pelvis, initial encounter (principal); Z79.899 Other long term (current) drug therapy; Z90.49 Acquired absence of other specified parts of digestive tract; Z60.2 Problems related to living alone; W18.39XA Other fall on same level, initial encounter; Y93.89 Activity, other specified; Y92.89 Other specified places as the place of occurrence of the external cause; Y99.8 Other external cause status
CPT/HCPCS: 99285; 72131; 96372; J1885

== ENCOUNTER 2023-06-29 16:51 | Emergency (ER) | payer OTHER ==
[~2023-06-29] VITALS: Ht 167.6 cm; Wt 81.6 kg
[~2023-06-29 16:51] MED LIST changes: +CYCL5TAB PO; +NAPR-1164 PO
[2023-06-29] MEDS ORDERED: CEFTRIAXONE 500 MG VIAL IM ONE (17:30)
[2023-06-29] MEDS ORDERED: DOXYCYCLINE HYCLATE (100 MG) 100 MG TABLET PO ONE (17:30)
[2023-06-29] MEDS ORDERED: CEFTRIAXONE 500 MG VIAL ONE (18:05)
[2023-06-29] MEDS ORDERED: DOXYCYCLINE HYCLATE (100 MG) 100 MG TABLET ONE (18:06)
[2023-06-29 18:19] VITALS: BP 132/68; TEMP 98.1; O2SAT 97
[2023-06-29] MEDS ORDERED: DOXY-326 PO ×2 (18:19→20:08)
[2023-06-30 13:07] LABS: RAPID PLASMA REAGIN QUAL. Non Reactive (Non Reactive)
[2023-07-01 15:07] LABS: CHLAMYDIA TRACHOMATIS NAA Negative (Negative); NEISSERIA GONORRHOEAE NAA Negative (Negative)
== END 2023-06-29 18:49 | disposition home or self-care (01) ==
LOC: ER 17:00
DX: A64 Unspecified sexually transmitted disease (principal); Z79.899 Other long term (current) drug therapy; Z90.49 Acquired absence of other specified parts of digestive tract; Z60.2 Problems related to living alone
CPT/HCPCS: 99283; 86592; 86593; 96372; 36415; 87491; 87591; J0696

== ENCOUNTER 2023-07-06 19:44 | Emergency (ER) | payer OTHER ==
[~2023-07-06] VITALS: Ht 170.2 cm; Wt 81.6 kg
[2023-07-06] MEDS ORDERED: PENICILLIN G BENZATHINE 2.4 MMU/4 ML ML IM ONE ×2 (22:18→22:30)
[2023-07-06 22:58] LABS: APPEARANCE,URINE CLEAR (CLEAR); BILIRUBIN,URINE NEGATIVE (NEGATIVE); BLOOD, URINE NEGATIVE Ery/uL (NEGATIVE); COLOR,URINE YELLOW (YELLOW); KETONES,URINE NEGATIVE (NEGATIVE); LEUKOCYTE ESTERASE ,URINE NEGATIVE (NEGATIVE); NITRITE, URINE NEGATIVE (NEGATIVE); PH,URINE 7.5 (5.0-8.0); PROTEIN,URINE NEGATIVE (NEGATIVE); UGLUCOSE NEGATIVE (NEGATIVE); UROBILINOGEN,URINE 0.2 EU/dL (0.2)
[2023-07-06 23:32] VITALS: BP 144/85; TEMP 99.1; O2SAT 98
[2023-07-08 05:08] LABS: RAPID PLASMA REAGIN QUAL. Non Reactive (Non Reactive)
== END 2023-07-06 23:32 | disposition home or self-care (01) ==
LOC: ER 19:45
DX: A53.9 Syphilis, unspecified (principal); F17.200 Nicotine dependence, unspecified, uncomplicated; Z79.899 Other long term (current) drug therapy; Z90.49 Acquired absence of other specified parts of digestive tract
CPT/HCPCS: 99283; 86592; 86593; 96372; 81003; 36415; J0558

== ENCOUNTER 2024-01-28 21:27 | Emergency (ER) | payer OTHER ==
[~2024-01-28] VITALS: Ht 172.7 cm; Wt 74.8 kg
[2024-01-28] MEDS ORDERED: CEFTRIAXONE 500 MG VIAL ONE (22:29)
[2024-01-28] MEDS ORDERED: AZITHROMYCIN 250 MG TABLET ONE (22:29)
[2024-01-28] MEDS ORDERED: METRONIDAZOLE 500 MG TABLET ONE (22:30)
[2024-01-28] MEDS ORDERED: PENICILLIN G BENZATHINE 2.4 MMU/4 ML ML IM ONE (22:31)
[2024-01-28] MEDS ORDERED: LIDOCAINE /MPF 1% VIAL 5 ML VIAL ONE (22:33)
[2024-01-28 22:44] LABS: APPEARANCE,URINE CLEAR (CLEAR); BILIRUBIN,URINE NEGATIVE (NEGATIVE); BLOOD, URINE TRACE-INTA Ery/uL (NEGATIVE); COLOR,URINE YELLOW (YELLOW); KETONES,URINE TRACE mg/dL (NEGATIVE); LEUKOCYTE ESTERASE ,URINE NEGATIVE (NEGATIVE); NITRITE, URINE NEGATIVE (NEGATIVE); PROTEIN,URINE NEGATIVE (NEGATIVE); UGLUCOSE NEGATIVE (NEGATIVE); UROBILINOGEN,URINE 0.2 EU/dL (0.2)
[2024-01-28] MEDS: PENICILLIN G BENZATHINE 2.4 MMU/4 ML ML IM ONE (22:52)
[2024-01-28] MEDS: AZITHROMYCIN 250 MG TABLET PO ONE (22:53)
[2024-01-28] MEDS: METRONIDAZOLE 500 MG TABLET PO ONE (22:53)
[2024-01-28] MEDS: CEFTRIAXONE 500 MG VIAL IM ONE (22:53)
[2024-01-28 23:04] LABS: ADD URINE CULTURE NO; BACTERIA,URINE None seen /HPF (None Seen); SQUAMOUS EPITHELIAL CELL,UR Rare /HPF (None Seen); WBC,URINE NONE SEEN /HPF (0-3)
[2024-01-28 23:17] VITALS: BP 131/82; TEMP 98.4; O2SAT 97
[2024-01-30 08:08] LABS: RAPID PLASMA REAGIN QUAL. Non Reactive (Non Reactive)
[2024-01-31 07:06] LABS: CHLAMYDIA TRACHOMATIS NAA Negative (Negative); NEISSERIA GONORRHOEAE NAA Negative (Negative)
== END 2024-01-28 23:17 | disposition home or self-care (01) ==
LOC: ER 21:29
DX: A64 Unspecified sexually transmitted disease (principal); Z90.89 Acquired absence of other organs; Z79.899 Other long term (current) drug therapy
CPT/HCPCS: 99284; 86592; 86593; 96372 ×2; 81001; 36415; 87491; 87591; J0558; J0696; J3490

== ENCOUNTER 2024-03-03 19:11 | Emergency (ER) | payer OTHER ==
[~2024-03-03] VITALS: Ht 172.7 cm; Wt 74.8 kg
[2024-03-03 19:48] VITALS: BP 150/74; TEMP 98.6; O2SAT 96
[2024-03-03] MEDS ORDERED: SULF1TAB48 PO (20:11)
== END 2024-03-03 20:17 | disposition home or self-care (01) ==
LOC: ER 19:12
DX: L03.114 Cellulitis of left upper limb (principal); F17.200 Nicotine dependence, unspecified, uncomplicated; Z90.89 Acquired absence of other organs; Z79.899 Other long term (current) drug therapy

== ENCOUNTER 2024-06-03 13:28 | Emergency (ER) | payer OTHER ==
[~2024-06-03] VITALS: Ht 172.7 cm; Wt 81.6 kg
[~2024-06-03 13:28] MED LIST changes: +SULF1TAB48 PO
[2024-06-03 13:39] VITALS: BP 129/71; TEMP 97.9
[2024-06-03] MEDS: IV NS 0.9% 1,000 ML BAG IV ONE (16:45)
[2024-06-03 17:44] VITALS: O2SAT 99
== END 2024-06-03 17:45 | disposition home or self-care (01) ==
LOC: ER 13:32
DX: F41.1 Generalized anxiety disorder (principal); F17.200 Nicotine dependence, unspecified, uncomplicated; Z90.49 Acquired absence of other specified parts of digestive tract; Z79.891 Long term (current) use of opiate analgesic; Z79.899 Other long term (current) drug therapy
CPT/HCPCS: 99283; 96360; J7030

== ENCOUNTER 2024-09-01 23:03 | Emergency (ER) | payer MEDICAID, OTHER ==
[~2024-09-01] VITALS: Ht 172.7 cm; Wt 74.8 kg
[2024-09-01 23:53] VITALS: BP 144/83; TEMP 98.5; O2SAT 98
[2024-09-02 00:06] LABS: APPEARANCE,URINE CLEAR (CLEAR); BILIRUBIN,URINE NEGATIVE (NEGATIVE); BLOOD, URINE NEGATIVE Ery/uL (NEGATIVE); COLOR,URINE YELLOW (YELLOW); KETONES,URINE NEGATIVE (NEGATIVE); LEUKOCYTE ESTERASE ,URINE NEGATIVE (NEGATIVE); NITRITE, URINE NEGATIVE (NEGATIVE); PROTEIN,URINE NEGATIVE (NEGATIVE); UGLUCOSE NEGATIVE (NEGATIVE); UROBILINOGEN,URINE 0.2 EU/dL (0.2)
[2024-09-02] MEDS ORDERED: LIDOCAINE /MPF 1% VIAL 5 ML VIAL ONE (00:38)
[2024-09-02] MEDS ORDERED: AZITHROMYCIN 250 MG TABLET ONE (00:38)
[2024-09-02] MEDS ORDERED: CEFTRIAXONE 500 MG VIAL ONE (00:38)
[2024-09-02] MEDS ORDERED: METRONIDAZOLE 500 MG TABLET ONE (00:38)
[2024-09-02] MEDS: AZITHROMYCIN 250 MG TABLET PO ONE (00:46)
[2024-09-02] MEDS: CEFTRIAXONE 500 MG VIAL IM ONE (00:46)
[2024-09-02] MEDS: METRONIDAZOLE 500 MG TABLET PO ONE (00:46)
[2024-09-03 21:08] LABS: CHLAMYDIA TRACHOMATIS NAA Negative (Negative); NEISSERIA GONORRHOEAE NAA Negative (Negative)
== END 2024-09-02 00:53 | disposition home or self-care (01) ==
LOC: ER 23:06
DX: Z20.2 Contact with and (suspected) exposure to infections with a predominantly sexual mode of transmission (principal); R03.0 Elevated blood-pressure reading, without diagnosis of hypertension; F17.200 Nicotine dependence, unspecified, uncomplicated; Z90.49 Acquired absence of other specified parts of digestive tract; Z79.899 Other long term (current) drug therapy
CPT/HCPCS: 99283; 96372; 81003; 87491; 87591; J0696; J3490

== ENCOUNTER 2025-10-09 22:08 | Emergency (ER) | payer MEDICAID | END 2025-10-09 23:08 | disposition left against medical advice (07) | LOC: ER 22:13 | DX: R06.02 Shortness of breath (principal); R42 Dizziness and giddiness; Z53.21 Procedure and treatment not carried out due to patient leaving prior to being seen by health care provider ==